=== PATIENT | female | born 2000 | race Caucasian/White ===

== ENCOUNTER 2024-08-23 09:07 | Outpatient (AMB) | payer BC, SELFPAY ==
--- NOTE | 2024-08-23 10:45 | MHC.OFFWIV ---
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 Patient Tobacco Use Status: Never used Tobacco Allergies No Known Allergies Allergy (Verified 08/23/24 10:47) Do you need a note to return to daycare/school/sports/work: No HPI RESOURCE DEVELOPMENT DIRECTOR Sore throat HPI Details This is a 23-year-old female patient who presents today to the walk-in clinic with a 2 day history of throat pain. Reports that she had strep throat x2 last year with tonsillitis, and this is beginning to feel quite similar to that. Denies any other upper respiratory symptoms. Denies any known exposure to sick contacts. Has not had a fever, however has felt cold constantly while at home. Has not taken anything [id number]. [facility] Social History Patient Tobacco Use Status: Never used Tobacco Review of Systems Const All systems reviewed & are unremarkable except as noted in HPI and below Physical Exam Const General: cooperative, healthy appearing and no acute distress Nutritional Appearance: average body habitus Limitations: no limitations HEENT Head: Yes normal to inspection Ears: hearing grossly normal bilaterally General nose exam: Normal external nose present Face and sinus: Yes normal facial exam Mouth: Normal oral and palatal mucosa present Throat: Yes abnormal tonsil (Mild tonsillar hypertrophy and erythema, small amount exudate right tonsil) Neck Neck: Yes no lymphadenopathy Resp Effort & Inspection: normal respiratory effort Auscultation: clear to auscultation bilaterally Cardio Rate: regular rate Rhythm: regular rhythm Skin General skin exam: no rashes or lesions noted Extrem General: Yes capillary refill normal and Yes no clubbing, cyanosis or edema Psych Appearance: grossly normal Mental Status: mental status grossly normal Speech and movement: Normal speech and movement present Assessment & Plan Assessment & Plan (1) Pharyngitis: Code(s): J02.9 - Acute pharyngitis, unspecified Qualifiers: Pharyngitis/tonsillitis etiology: unspecified etiology Qualified Code(s): J02.9 - Acute pharyngitis, unspecified Plan: Patient has tonsillar erythema and some exudate. Rapid strep in the office was negative, and so this could in fact be a viral pharyngitis, however patient has developed severe streptococcal pharyngitis in the past with associated severe tonsillitis, and so we discussed conservative measures over the next day or so, with increased hydration, lozenges, Tylenol/Motrin, and if throat symptoms worsen, she can start the prescribed antibiotic. We reviewed indications, use, possible side effects of this. She agrees to this plan and will return to the clinic if she does not improve with time/treatment. Medications: New penicillin V potassium 500 mg PO BID 10 days 20 tabs 0RF J02.0 - Streptococcal pharyngitis Coding Level of Care Code Est Pt Level 4 (95769) Diagnoses Pharyngitis, unspecified etiology J02.9 Pharyngitis/tonsillitis etiology: unspecified etiology
[2024-08-23 10:46] VITALS: BP 120/68; PULSE 75; TEMP 36.6; O2SAT 99; BMI 24.5
== END 2024-08-23 11:10 | disposition home or self-care (01) ==
PROVIDERS: Visit Provider Nurse Practitioner Family
DX: J02.9 Acute pharyngitis, unspecified (principal)

== ENCOUNTER 2025-02-03 08:38 | Outpatient (AMB) | payer BC, SELFPAY ==
[2025-02-03 08:37] VITALS: BP 104/62; PULSE 66; RESP 16; TEMP 36.8; O2SAT 99; BMI 22.8
--- NOTE | 2025-02-03 08:37 | AM.OFFWIN_ITS ---
Intake Vital Signs 02/03/25 08:37 Height 5 ft 4 in Weight 133 lb BMI 22.8 BP 104/62 Blood Pressure Location Rt brachial Position Sitting Respiration 16 Pulse 66 Pulse Source Pulse Oximeter Temp 98.3 F Temp Source Oral Pulse Oximetry (%) 99 Oxygen Delivery Method Room Air Intake Visit Reasons: EP-sore throat, cough Intake Note: pt is here today forsore throught, says feels like breathing through a pinhole . Back of throat is swollen and has white pus. Pain started yesterday. Patient Tobacco Use Status: Never used Tobacco Accompanied by: Self / Same As Patient Allergies No Known Allergies Allergy (Verified 02/03/25 08:42) Do you need a note to return to daycare/school/sports/work: No HPI HPI Comments History of Present Illness Details History of Present Illness - The patient is a 24-year-old female pr esenting with a sore throat with possible recurrence of streptococcal pharyngitis. - Symptoms began the day prior with pain in the throat and visible white exudates. - Also reports difficulty in breathing d escribed as attempting to breathe through a pinhole, although denies chest pain or wheezing. - Denied associated headache and had min or coughing probably due to the throat condition. There is an absence of a runny nose. - She had strep in Aug and tonsilitis in Sep involving antibiotics like amoxicillin. - Self-remedies such as warm tea had lit tle effect, and prior antibiotic treatment for previous pharyngitis episodes was implied. - Concern over past negative strep test results potentially resulting from inadequate sampling. - She denies sick contacts. She denies s moking. She denies CP, SOB, abd pain, n/v/d, ear pain, cough, runny nose, congestion, or sinus pain. Physical Exam General: Cooperative, healthy appearing, comfortable, no acute distress and well developed Head: Normal to inspection Ears: Hearing grossly normal bilaterally, TMs normal bilaterally. Nose: Normal external nose present, no erythema to the turbinates bilaterally. Face and sinus: Normal facial exam, no sinus pain or pressure on palpation. Eyes: Appearance normal, both eyes and all related structures Throat: Erythema noted on the oropharynx. White exudates noted on the tonsils bilaterally. Uvula is midline. Halitosis is noted. Neck: Normal visual inspection and Yes full ROM, TTP of the lymph nodes bilaterally. Respiratory: Normal respiratory effort and able to speak in complete sentences. Clear to auscultation bilaterally Cardiovascular: Regular rate and rhythm. Normal S1 and S2 GI: Normal to inspection. Soft to palpation and nontender Skin: No rashes or lesions noted Patient was informed and verbally consented to the use of an ambient scribe for clinic note documentation during this visit. [facility] Social History Patient Tobacco Use Status: Never used Tobacco Review of Systems Const All systems reviewed & are unremarkable except as noted in HPI and below Physical Exam Vital Signs: Last Vital Signs Temp 98.3 F 02/03/25 08:37 Pulse 66 02/03/25 08:37 Resp 16 02/03/25 08:37 BP 104/62 02/03/25 08:37 Pulse Ox 99 02/03/25 08:37 Oxygen Delivery Method Room Air 02/03/25 08:37 BMI result Body Mass Index 22.8 Results AMB Rapid Strep AMB Rapid Strep Negative Last Edit by Jolene Amador CMA on 02/03/25 08:57 Results Reviewed Results Reviewed: Laboratory Last Values Strep Scn Rapid Clinic Negative 02/03/25 08:51 Assessment & Plan Assessment & Plan (1) Pharyngitis: Code(s): J02.9 - Acute pharyngitis, unspecified Plan Most likely strep vs tonsilitis rapid in the office was negative Plan - Initiate antibiotics for 10 days due to the recurring nature and severity of sore throat symptoms. - Supportive care with saltwater gargles, Tylenol, Motrin, Popsicles, and lozenges to manage pain and throat swelling. - Medication has been ordered and sent to the pharmacy for patient pick-up to enable prompt treatment initiation. - Diet as tolerated. Orders: Orders AMB Rapid Strep Screen Today Z13.9 - Encounter for screening, unspecified Medications: New penicillin V potassium 500 mg PO BID 10 days 20 tabs 0RF Coding Level of Care Code New Pt Level 4 (96716) Diagnoses Pharyngitis J02.9
--- OUTSIDE RECORDS SUMMARY | 2025-02-03 08:46 | XMS_ITS | Clinical Summary ---
Author Organization [facility] Address [address] [place] [id number] Phone Care Team Providers Care Turkey Pinner Name Role Phone Unavailable Primary Care Provider Unavailabl e Allergies No known active allergies Medications No known medications Active Problems Problem Noted Date Diagnosed Date Contraceptive education 11/24/2023 Assessment & Plan (11/24/2023 2:24 PM EDT): Make an appointment for counseling and consent for nexplanon Vitamin D deficiency 11/24/2023 Tonsillitis 11/24/2023 Overview (11/24/2023): X 2 since xmas Assessment & Plan (11/24/2023 2:29 PM EDT): Gargle with salt water, throat lozenges, tylenol Acute medial meniscal injury of knee, right, seq uela 05/04/2022 Overview (11/24/2023): Sometimes a little sore, but not recently Assessment & Plan (11/24/2023 2:24 PM EDT): Call if gets to be a problem Assessment & Plan (05/04/2022 2:49 PM EDT): Continue with PT 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 Assessment & Plan (05/04/2022 2:48 PM EDT): Stable, check yearly Assessment & Plan (05/20/2020 3:28 PM EDT): stable Assessment & Plan (05/19/2019 9:56 PM EDT): Has not changed, picture taken but since >1cm,irregular, and black spots within in (though had previously) should see derm, recommended Massiel Seo Resolved Problems Problem Noted Date Diagnosed Date Resolved Date COVID-19 virus infection 05/04/202202/2022 Overview (05/04/2022): November,, mild infection Exercise-induced asthma 07/10/201304/29 Assessment & Plan (05/17/2019 3:16 PM EDT): No problem in years Immunizations Immunization Administration Dates Next Due COVID-19 Pfizer, wen-sucros e, 12+ years 03/08/2022 COVID-19 Vaccine Moderna, se asonal, 12+ years 11/24/2023 DTaP 5 01/08/2007, 4,06/23/2003,05/05,02/17/2003 H1N1 09/22/2009,06/24/2009 HPV Vaccine 9 Valent 04/14/2017,04/01/2016 Hep A, ped/adol 04/01/2016,03/12/2015 Hep B, ped/adol 09/19/2003,06/23/2003,2002 Hib (HbOC) 03/19/2004 Hib (PRP-T) 06/23/2003,05/05/2003,02/17/2003 IPV 01/08/2007, 4,05/05/2003,02/17 Influenza Split 09/12/2012,06/09/2011,05/25/2010 Influenza, injectable, quadrivalent 06/16/2015 Influenza, injectable, quadr ivalent, preservative free 11/24/2023,05/04/2022,05/20/2020,07/10 Influenza, injectable, trivalent 09/22/2009 MMR 01/13/2004 MMRV 01/08/2007 Meningococcal B Trumenba 03/08/2022,05/20/2020 Meningococcal Conj (Menactra) MCV4P 05/17/2019,0 03/12/2015 Pneumococcal Conjugate 06/25/2004,2002,05/05/2003,02/17 Tdap 03/12/2015 Varicella 01/13/2004 Family History Medical History Relation Name Comments Allergies Brother Bert Crohn's disease Father No Known Problems Maternal Grandmother Migraines Mother Hyperlipidemia Paternal Grandmother Relation Name Status Comments Brother Bert Alive Father Alive Father: Crohn's disease Maternal Grandfather Alive Materna l grandfather: HTN/ high cholesterol Maternal Grandmother Alive Materna l grandmother: asthma/ heart Mother Alive Mother: Alive a nd well Other Family history of *CVA/Stroke, Family history of *Heart Disease, No family history of *Thrombophilia, Family history of *Sudden /ME under 55 Paternal Grandfather Paterna l grandfather: Hypertension Paternal Grandmother Paterna l grandmother: Asthma Social History Tobacco Use Types Packs/Day Years Used Date Smoking Tobacco: Never Smokeless Tobacco: Never Comments:Never smoker Alcohol Use Standard Drinks/Week Comments No 0 (1 standard drink = 0.6 oz pur e alcohol) Hunger/Food Answer Date Recorded In the last 12 months, did y ou or your family ever eat less than you felt you should because there wasn't enough money for food? No 11/24/2023 Stable Housing Answer Date Recorded Are you worried that in the next 2 months you may not have stable housing? No 11/24/2023 Transportation Concerns Answer Date Rec orded In the last 12 months, have you or your family ever had to go without healthcare because you didn't have a way to get there? No 11/24/2023 Hazards in Home Answer Date Recorded Think about the place you li ve. Do you have problems with any of the following? Pests (mice or roaches), mold, no/not working smoke detectors, water leaks, no window guards. No 2023 Financing Utilities Answer Date Recorde d In the last 12 months, has t he electric, gas, oil, or water company threatened to shut off your services in your home? No 11/24/2023 Safety at Home Answer Date Recorded Are you or your family worried about feeling saf e in your home? No 11/24/2023 Outside Support Answer Date Recorded Do you feel that you need mo re support from other people or programs to help you care for yourself or your family? No 11/24/2023 Understanding Health Concerns Answer Da te Recorded Do you need help understandi ng your or your child's healthcare needs (diagnosis, medications, plan, etc.)? No 11/24/2023 Financing Health Concerns Answer Date R ecorded In the last 12 months, was t here a time when your child needed to see a doctor or get medications or supplies but could not because of cost? No 11/24/2023 Missing School or Work Answer Date River rded Did you or your child miss s chool or work because of a health problem that could have been avoided? No 11/24/2023 Comments No Sex and Gender Information Value Date Recorded Sex Assigned at Female 05/19/2019 9:55 PM EDT Legal Sex Female 2:46 PM EDT Gender Identity Female 05/19/2019 9:55 PM EDT Sexual Orientation Straight 05/19/2019 9: 55 PM EDT Last Filed Vital Signs Vital Sign Reading Time Taken Comments Blood Pressure 123/72 11/24/2023 1:43 PM EDT Pulse 84 11/24/2023 1:43 PM EDT Temperature 36.3 ??C (97.4 ??F) 11/24/2023 1:43 PM ED T Respiratory Rate - - Oxygen Saturation 98% 06/02/2010 12:00 AM EDT Inhaled Oxygen Concentration - - Weight 61.2 kg (135 lb) 11/24/2023 1:43 PM EDT Height 163.8 cm (5' 4.5 ) 11/24/2023 1:43 PM EDT Body Mass Index 22.81 11/24/2023 1:43 PM EDT Plan of Treatment Health Maintenance Due Date Last Done Comments Influenza Vaccines (#1) 2024 11/24/19 24, 05/04/2022, 05/20/2020, Additional history exists COVID-19 Vaccine (5 - 2023-2 5 season) 2024 11/24/2023, 03/08/2022, 04/22/2021, Additional history exists DTaP,Tdap,and Td Vaccines (7 - Td or Tdap) 03/12/2025 03/12/2015, 01/08/2007, 06/25/2004, Additional history exists Hepatitis B Vaccines Completed 09/19/2003, 06/23/2003, 2002 HIB Vaccines Completed 03/19/2004, 05/29, 05/05/2003, Additional history exists Pneumococcal Vaccine Completed 06/25/2004, 06/23/2003, 05/05/2003, Additional history exists IPV Vaccines Completed 01/08/2007, 08/29, 05/05/2003, Additional history exists MMR Vaccines Completed 01/08/2007, 01/13/2004 Varicella Vaccines Completed 01/08/2007, 01/13/2004 Hepatitis A Vaccines Completed 04/01/2016, 03/12/20 15 HPV Vaccines Completed 04/14/2017, 04/01/2016 Meningococcal Vaccine Completed 05/17/2019, 015 Men B Vaccine Completed 03/08/2022, 05/20/2020 Procedures * Due to [place] [employer] law, this organization might not be sharing sensitive test results. Procedure Name Priority Date/Time Associated Diagnosis Comments CHLAMYDIA AND GONORRHEA, AMPLIFIED Routine 11/24/2023 1:55 PM EDT Special screening examination for chlamydial disease from Last 3 Months or Most Recently Relevant to Health Maintenance Results * Due to [place] [employer] law, this organization might not be sharing sensitive test results. * Chlamydia and Gonorrhoea, Amplified (11/24/2023 1:55 PM EDT) C trach RONEL Negative Negative [facility] N gonorrhoeae RONEL Negative Negative [facility] Urine (Urine) 11/24/2023 1:5 5 PM EDT 11/24/2023 Comment:Urine Narrative [facility] - 11/27/2023 8:06 PM EDT Performed at: ??01 - [facility] [address] ??[id number] [place] Service Technician: Megan Grimes MD, Phone: ??[phone] us Jimmy Buenrostro MD LAB MICROBIOLOGY - GENERAL OR DERABLES Final Result [facility] [address] [place] [address] from Last 3 Months or Most Recently Relevant to Health Maintenance
== END 2025-02-03 09:10 | disposition home or self-care (01) ==
PROVIDERS: Visit Provider Physician Assistant Medical
DX: J02.9 Acute pharyngitis, unspecified (principal)

== ENCOUNTER → 2025-02-03 08:38 | Outpatient (BNVA) | payer BC, SELFPAY | PROVIDERS: Visit Provider Physician Assistant Medical | DX: J02.9 Acute pharyngitis, unspecified (principal) | CPT/HCPCS: 87880 ==